=== PATIENT | female | born 1930 | race Caucasian/White ===

== ENCOUNTER 2021-07-27 13:58 | Inpatient (IN) | payer MEDICARE, BC ==
[~2021-07-27] VITALS: Ht 157.5 cm; Wt 55.3 kg
[~2021-07-27 13:58] MED LIST: BUMETANIDE1 MG PO; CLINDAMYCIN HC150 MG PO; DIGOXIN125 MCG PO; DILTIAZEM 24HR180 MG PO; XARELTO10 MG PO
[2021-07-27 14:24] LABS: BASOPHILS # (AUTO) 0.1 (0.0-0.1); BASOPHILS % 0.4 % (0.0-1.0); EOSINOPHILS % 0.3 % (0.0-6.0); HEMATOCRIT 38.4 % (34.2-44.1); HEMOGLOBIN 12.5 g/dL (12.0-16.0); LYMPHOCYTES # (AUTO) 0.8 (1.0-3.2); LYMPHOCYTES % 6.4 % (18.0-39.1); MEAN CORPUSCULAR HEMOGLOBIN 29.6 pg (28-32); MEAN CORPUSCULAR HGB CONC 32.6 g/dL (31-35); MEAN CORPUSCULAR VOLUME 90.8 fL (81-99); MONOCYTES # (AUTO) 0.9 (0.2-0.8); MONOCYTES % 7.1 % (4.4-11.3); NEUTROPHILS # (AUTO) 10.3 (2.1-6.9); NEUTROPHILS % 85.3 % (38.7-80.0); PLATELET COUNT 236 x10e3/uL (140-360); RED BLOOD COUNT 4.23 x10e6/uL (3.6-5.1); RED CELL DISTRIBUTION WIDTH 14.2 % (11.7-14.4)
[2021-07-27 14:29] LABS: INR 4.17
[2021-07-27 14:30] LABS: PARTIAL THROMBOPLASTIN TIME 72.4 seconds (23.8-35.5)
[2021-07-27 14:37] LABS: ALBUMIN 4.1 g/dL (3.5-5.0); ANION GAP 14.8 mmol/L (8-16); CALCIUM 9.4 mg/dL (8.4-10.2); CREATININE, SERUM 0.87 mg/dL (0.57-1.11); POTASSIUM 3.8 mmol/L (3.5-5.1)
[2021-07-27 14:44] LABS: CREATINE KINASE MB 8.1 ng/mL (0-5.0)
[2021-07-27] MEDS ORDERED: ASPIRIN 81 MG CHEW TAB PO ONE (18:00)
[2021-07-27 20:00] VITALS: BP 176/69
[2021-07-27 21:00] VITALS: BP 176/69
[2021-07-27 21:49] VITALS: BP 176/69
[2021-07-27] MEDS ORDERED: MELATONIN 3 MG TAB PO PRN (22:30)
[2021-07-27] MEDS ORDERED: HYDROCODONE/APAP 5MG-325MG TAB PO PRN (22:30)
[2021-07-27] MEDS: ENOXAPARIN SOD INJ 60 MG/0.6 ML SYR SC SCH (22:30)
[2021-07-27] MEDS ORDERED: ACETAMINOPHEN 325 MG TAB PO PRN (22:30)
[2021-07-27] MEDS ORDERED: ONDANSETRON HCL INJ 2MG/ML 2ML 2 MG/ML VIAL IV PRN (22:30)
[2021-07-27] MEDS ORDERED: HYDRALAZINE HCL 20 MG/ML VIAL IV PRN (22:45)
[2021-07-27] MEDS ORDERED: AMIODARONE HCL200 MG PO (22:51)
[2021-07-27] MEDS ORDERED: ALBUTEROL/IPRATROPIUM 3 ML NEB NEB PRN (23:45)
[2021-07-28] VITALS: BP 159/68
[2021-07-28] MEDS ORDERED: DIPHENHYDRAMINE HCL INJ 50 MG/ML VIAL IV PRN
[2021-07-28 01:25] LABS: CHOL/HDL RATIO 2.5 (3.0-3.6)
[2021-07-28 01:26] LABS: CREATINE KINASE MB 12.4 ng/mL (0-5.0)
[2021-07-28 04:00] VITALS: BP 140/61
[2021-07-28] MEDS ORDERED: SODIUM CHLORIDE 0.9% 250ML 250 ML ONE (05:39)
[2021-07-28] MEDS: Clindamycin INJ 300 MG/50 ML 50 ML IV SCH ×3 (06:30→21:54)
[2021-07-28 06:36] LABS: BASOPHILS % 0.3 % (0.0-1.0); EOSINOPHILS # (AUTO) 0.1 (0.0-0.4); EOSINOPHILS % 0.4 % (0.0-6.0); HEMATOCRIT 34.2 % (34.2-44.1); HEMOGLOBIN 11.2 g/dL (12.0-16.0); LYMPHOCYTES # (AUTO) 0.9 (1.0-3.2); LYMPHOCYTES % 7.8 % (18.0-39.1); MEAN CORPUSCULAR HEMOGLOBIN 29.8 pg (28-32); MEAN CORPUSCULAR HGB CONC 32.7 g/dL (31-35); MONOCYTES % 8.6 % (4.4-11.3); NEUTROPHILS # (AUTO) 9.4 (2.1-6.9); NEUTROPHILS % 82.5 % (38.7-80.0); PLATELET COUNT 200 x10e3/uL (140-360); RED BLOOD COUNT 3.76 x10e6/uL (3.6-5.1); RED CELL DISTRIBUTION WIDTH 14.1 % (11.7-14.4)
[2021-07-28 07:08] LABS: ALBUMIN 3.4 g/dL (3.5-5.0); ANION GAP 11.6 mmol/L (8-16); CALCIUM 8.6 mg/dL (8.4-10.2); CREATININE, SERUM 0.74 mg/dL (0.57-1.11); POTASSIUM 3.6 mmol/L (3.5-5.1)
[2021-07-28 08:37] VITALS: BP 140/68
[2021-07-28] MEDS ORDERED: RIVAROXABAN 15 MG TABLET PO SCH (09:00)
[2021-07-28] MEDS ORDERED: FUROSEMIDE INJ 10 MG/ML 4 ML VIAL IV SCH (09:00)
[2021-07-28] MEDS ORDERED: BUMETANIDE 1 MG TAB PO SCH (09:00)
[2021-07-28] MEDS: ASPIRIN 81 MG CHEW TAB PO SCH (09:32)
[2021-07-28] MEDS: DILTIAZEM HCL ER 120 MG CAP PO SCH (09:33)
[2021-07-28] MEDS: DIGOXIN 0.125 MG TAB PO SCH (09:34)
[2021-07-28] MEDS: METHYLPREDNISOLONE SOD SUCC 125 MG/2ML VIAL IV SCH ×2 (09:45→21:54)
[2021-07-28] MEDS: ENOXAPARIN SOD INJ 60 MG/0.6 ML SYR SC SCH ×2 (09:47→21:54)
[2021-07-28] MEDS: ALBUTEROL/IPRATROPIUM 3 ML NEB NEB SCH ×3 (10:15→20:20)
[2021-07-28 11:37] LABS: CREATINE KINASE MB 12.1 ng/mL (0-5.0)
[2021-07-28 12:14] VITALS: BP 150/71
[2021-07-28] MEDS: BENZONATATE 100 MG CAP PO PRN (14:52)
[2021-07-28 15:47] VITALS: BP 117/59
[2021-07-28 20:00] VITALS: BP 128/62
[2021-07-28] MEDS: SODIUM CHLORIDE FLUSH 10 ML SYR INJ PRN (21:30)
[2021-07-28] MEDS: FUROSEMIDE INJ 10 MG/ML 4 ML VIAL IV SCH (21:44)
[2021-07-29] VITALS (7 sets, daily range): BP systolic 102–130; BP diastolic 63–71
[2021-07-29] MEDS: ALBUTEROL/IPRATROPIUM 3 ML NEB NEB SCH ×6 (01:00→23:36)
[2021-07-29 05:54] LABS: BASOPHILS % 0.1 % (0.0-1.0); HEMATOCRIT 31.9 % (34.2-44.1); HEMOGLOBIN 10.6 g/dL (12.0-16.0); LYMPHOCYTES # (AUTO) 0.6 (1.0-3.2); LYMPHOCYTES % 4.5 % (18.0-39.1); MEAN CORPUSCULAR HEMOGLOBIN 29.5 pg (28-32); MEAN CORPUSCULAR HGB CONC 33.2 g/dL (31-35); MEAN CORPUSCULAR VOLUME 88.9 fL (81-99); MONOCYTES # (AUTO) 0.4 (0.2-0.8); MONOCYTES % 2.9 % (4.4-11.3); NEUTROPHILS # (AUTO) 11.6 (2.1-6.9); NEUTROPHILS % 92.1 % (38.7-80.0); PLATELET COUNT 197 x10e3/uL (140-360); RED BLOOD COUNT 3.59 x10e6/uL (3.6-5.1); RED CELL DISTRIBUTION WIDTH 13.8 % (11.7-14.4)
[2021-07-29] MEDS: Clindamycin INJ 300 MG/50 ML 50 ML IV SCH ×3 (06:20→22:00)
[2021-07-29 06:26] LABS: ALBUMIN 3.2 g/dL (3.5-5.0); ALBUMIN/GLOBULIN RATIO 0.9 (0.8-2.0); ANION GAP 12.1 mmol/L (8-16); CALCIUM 8.3 mg/dL (8.4-10.2); CREATININE, SERUM 0.93 mg/dL (0.57-1.11); POTASSIUM 3.1 mmol/L (3.5-5.1)
[2021-07-29] MEDS: BENZONATATE 100 MG CAP PO PRN (08:41)
[2021-07-29] MEDS: DIGOXIN 0.125 MG TAB PO SCH (08:41)
[2021-07-29] MEDS: ASPIRIN 81 MG CHEW TAB PO SCH (08:42)
[2021-07-29] MEDS: DILTIAZEM HCL ER 120 MG CAP PO SCH (08:42)
[2021-07-29] MEDS: METHYLPREDNISOLONE SOD SUCC 125 MG/2ML VIAL IV SCH ×2 (08:43→21:00)
[2021-07-29] MEDS: FUROSEMIDE INJ 10 MG/ML 4 ML VIAL IV SCH (08:43)
[2021-07-29 08:44] LABS: LYMPHOCYTES % (MANUAL) 4 % (19-48); MONOCYTES % (MANUAL) 1 % (3.4-9.0); NEUTROPHILS % (MANUAL) 95 % (40-74); PLATELET ESTIMATE ADEQUATE; PLATELET MORPHOLOGY COMMENT NORMAL
[2021-07-29 08:45] LABS: RBC MORPHOLOGY COMMENT NORMAL
[2021-07-29] MEDS: ENOXAPARIN SOD INJ 60 MG/0.6 ML SYR SC SCH ×2 (10:21→22:29)
[2021-07-29] MEDS: GUAIFENESIN 200 MG/10 ML UDC PO PRN ×3 (15:00→22:26)
[2021-07-30] VITALS (8 sets, daily range): BP systolic 119–161; BP diastolic 72–85
[2021-07-30] MEDS: BENZONATATE 100 MG CAP PO PRN ×2 (02:33→21:30)
[2021-07-30 05:16] LABS: BASOPHILS % 0.1 % (0.0-1.0); HEMATOCRIT 32.6 % (34.2-44.1); HEMOGLOBIN 11.2 g/dL (12.0-16.0); LYMPHOCYTES # (AUTO) 0.6 (1.0-3.2); LYMPHOCYTES % 2.3 % (18.0-39.1); MEAN CORPUSCULAR HGB CONC 34.4 g/dL (31-35); MEAN CORPUSCULAR VOLUME 87.4 fL (81-99); MONOCYTES % 3.8 % (4.4-11.3); NEUTROPHILS # (AUTO) 25.2 (2.1-6.9); NEUTROPHILS % 93.2 % (38.7-80.0); PLATELET COUNT 260 x10e3/uL (140-360); RED BLOOD COUNT 3.73 x10e6/uL (3.6-5.1); RED CELL DISTRIBUTION WIDTH 13.9 % (11.7-14.4)
[2021-07-30 05:57] LABS: ALBUMIN 3.5 g/dL (3.5-5.0); ANION GAP 15.3 mmol/L (8-16); CALCIUM 8.4 mg/dL (8.4-10.2); CREATININE, SERUM 0.98 mg/dL (0.57-1.11); POTASSIUM 3.3 mmol/L (3.5-5.1)
[2021-07-30] MEDS: Clindamycin INJ 300 MG/50 ML 50 ML IV SCH (06:00)
[2021-07-30] MEDS: ALBUTEROL/IPRATROPIUM 3 ML NEB NEB SCH ×3 (06:31→20:25)
[2021-07-30] MEDS: GUAIFENESIN 200 MG/10 ML UDC PO PRN (06:59)
[2021-07-30 08:45] LABS: LYMPHOCYTES % (MANUAL) 5 % (19-48); MONOCYTES % (MANUAL) 2 % (3.4-9.0); NEUTROPHILS % (MANUAL) 93 % (40-74); PLATELET ESTIMATE ADEQUATE; PLATELET MORPHOLOGY COMMENT NORMAL; RBC MORPHOLOGY COMMENT NORMAL
[2021-07-30] MEDS: METHYLPREDNISOLONE SOD SUCC 125 MG/2ML VIAL IV SCH ×2 (08:56→21:29)
[2021-07-30] MEDS: LEVOFLOXACIN 500MG/D5W 100ML 100 ML IV SCH (08:56)
[2021-07-30] MEDS: ASPIRIN 81 MG CHEW TAB PO SCH (08:58)
[2021-07-30] MEDS: DIGOXIN 0.125 MG TAB PO SCH (08:59)
[2021-07-30] MEDS: DILTIAZEM HCL ER 120 MG CAP PO SCH (08:59)
[2021-07-30] MEDS ORDERED: FUROSEMIDE INJ 10 MG/ML 4 ML VIAL IV SCH (09:00)
[2021-07-30] MEDS ORDERED: POTASSIUM CHLORIDE 20 MEQ TAB CR PO ONE ×2 (09:00→15:50)
[2021-07-30] MEDS: ENOXAPARIN SOD INJ 60 MG/0.6 ML SYR SC SCH ×2 (10:19→22:21)
[2021-07-30] MEDS: POLYETHYLENE GLYCOL 3350 17 GM PACK PO SCH (16:15)
[2021-07-30] MEDS: PANTOPRAZOLE SOD 40 MG TABEC PO SCH (16:15)
[2021-07-30 16:52] LABS: CLARITY,URINE CLEAR (CLEAR); COLOR,URINE YELLOW (YELLOW); KETONES,URINE NEGATIVE (NEGATIVE); LEUKOCYTE ESTERASE ,URINE NEGATIVE (NEGATIVE); NITRITE,URINE NEGATIVE (NEGATIVE); PROTEIN,URINE DIPSTICK 1+ (NEGATIVE); URINE UROBILINOGEN 0.2 mg/dL (0.2 - 1)
[2021-07-30 16:53] LABS: BACTERIA,URINE FEW /HPF; RBC,URINE 0-5 /HPF (0-5); WBC,URINE (MAN) 0-5 /HPF (0-5)
[2021-07-30] MEDS ORDERED: IOPAMIDOL 370 MG/ML 200 ML INFUS..BTL INJ ONE (17:36)
[2021-07-30] MEDS ORDERED: SODIUM CHLORIDE 0.9% 50ML 50 ML ONE (17:36)
[2021-07-30] MEDS: DOCUSATE SODIUM 100 MG CAP PO SCH (21:00)
[2021-07-31] VITALS (8 sets, daily range): BP systolic 126–165; BP diastolic 55–95
[2021-07-31 05:41] LABS: BASOPHILS % 0.1 % (0.0-1.0); HEMATOCRIT 32.9 % (34.2-44.1); HEMOGLOBIN 11.1 g/dL (12.0-16.0); LYMPHOCYTES # (AUTO) 0.6 (1.0-3.2); LYMPHOCYTES % 2.7 % (18.0-39.1); MEAN CORPUSCULAR HEMOGLOBIN 29.4 pg (28-32); MEAN CORPUSCULAR HGB CONC 33.7 g/dL (31-35); MEAN CORPUSCULAR VOLUME 87.3 fL (81-99); MONOCYTES # (AUTO) 1.3 (0.2-0.8); MONOCYTES % 6.3 % (4.4-11.3); NEUTROPHILS # (AUTO) 18.8 (2.1-6.9); NEUTROPHILS % 89.7 % (38.7-80.0); PLATELET COUNT 288 x10e3/uL (140-360); RED BLOOD COUNT 3.77 x10e6/uL (3.6-5.1); RED CELL DISTRIBUTION WIDTH 13.8 % (11.7-14.4)
[2021-07-31 06:10] LABS: CALCIUM 8.6 mg/dL (8.4-10.2); CREATININE, SERUM 0.84 mg/dL (0.57-1.11); MAGNESIUM 2.1 MG/DL (1.3-2.1)
[2021-07-31 06:28] LABS: PHOSPHORUS 2.3 MG/DL (2.3-4.7)
[2021-07-31] MEDS: ALBUTEROL/IPRATROPIUM 3 ML NEB NEB SCH ×5 (06:35→23:30)
[2021-07-31] MEDS: ASPIRIN 81 MG CHEW TAB PO SCH (08:03)
[2021-07-31] MEDS: PANTOPRAZOLE SOD 40 MG TABEC PO SCH (08:03)
[2021-07-31] MEDS: METHYLPREDNISOLONE SOD SUCC 125 MG/2ML VIAL IV SCH ×2 (08:03→21:16)
[2021-07-31] MEDS: LEVOFLOXACIN 500MG/D5W 100ML 100 ML IV SCH (08:03)
[2021-07-31] MEDS: POLYETHYLENE GLYCOL 3350 17 GM PACK PO SCH ×2 (08:04→16:56)
[2021-07-31] MEDS: DIGOXIN 0.125 MG TAB PO SCH (08:04)
[2021-07-31] MEDS: DOCUSATE SODIUM 100 MG CAP PO SCH ×3 (08:04→21:16)
[2021-07-31] MEDS: DILTIAZEM HCL ER 120 MG CAP PO SCH (08:04)
[2021-07-31] MEDS ORDERED: SODIUM CHLORIDE 0.9% 500ML 500 ML IV ONE (08:30)
[2021-07-31] MEDS ORDERED: MAGNESIUM HYDROXIDE 30 ML UDC PO ONE (08:30)
[2021-07-31] MEDS ORDERED: BISACODYL 10 MG SUPP PR ONE (09:00)
[2021-07-31 09:42] LABS: BAND NEUTROPHILS % (MANUAL) 1 %; LYMPHOCYTES % (MANUAL) 2 % (19-48); MONOCYTES % (MANUAL) 5 % (3.4-9.0); NEUTROPHILS % (MANUAL) 92 % (40-74); PLATELET ESTIMATE ADEQUATE; PLATELET MORPHOLOGY COMMENT NORMAL; RBC MORPHOLOGY COMMENT NORMAL
[2021-07-31] MEDS: ENOXAPARIN SOD INJ 60 MG/0.6 ML SYR SC SCH ×2 (10:20→22:20)
[2021-07-31] MEDS: SODIUM CHLORIDE FLUSH 10 ML SYR INJ PRN (21:27)
[2021-07-31] MEDS: ONDANSETRON HCL 4 MG ORAL DISINTEGRATING TAB PO PRN (21:27)
[2021-08-01] VITALS (10 sets, daily range): BP systolic 73–125; BP diastolic 48–81
[2021-08-01] MEDS: ALBUTEROL/IPRATROPIUM 3 ML NEB NEB SCH ×4 (03:30→19:40)
[2021-08-01 05:47] LABS: ALBUMIN/GLOBULIN RATIO 1.3 (0.8-2.0); ANION GAP 13.6 mmol/L (8-16); CALCIUM 7.9 mg/dL (8.4-10.2); CREATININE, SERUM 1.35 mg/dL (0.57-1.11); POTASSIUM 4.6 mmol/L (3.5-5.1)
[2021-08-01 06:19] LABS: BASOPHILS # (AUTO) 0.1 (0.0-0.1); BASOPHILS % 0.2 % (0.0-1.0); HEMATOCRIT 23.9 % (34.2-44.1); LYMPHOCYTES # (AUTO) 1.3 (1.0-3.2); LYMPHOCYTES % 5.3 % (18.0-39.1); MEAN CORPUSCULAR HEMOGLOBIN 29.9 pg (28-32); MEAN CORPUSCULAR HGB CONC 33.9 g/dL (31-35); MEAN CORPUSCULAR VOLUME 88.2 fL (81-99); MONOCYTES # (AUTO) 1.9 (0.2-0.8); MONOCYTES % 7.6 % (4.4-11.3); NEUTROPHILS # (AUTO) 20.8 (2.1-6.9); PLATELET COUNT 249 x10e3/uL (140-360); RED BLOOD COUNT 2.71 x10e6/uL (3.6-5.1); RED CELL DISTRIBUTION WIDTH 13.8 % (11.7-14.4)
[2021-08-01 06:26] LABS: HEMOGLOBIN 8.1 g/dL (12.0-16.0)
[2021-08-01] MEDS ORDERED: SODIUM CHLORIDE 0.9% 500ML 500 ML IV ONE (06:45)
[2021-08-01] MEDS: ASPIRIN 81 MG CHEW TAB PO SCH (09:41)
[2021-08-01] MEDS: LEVOFLOXACIN 500MG/D5W 100ML 100 ML IV SCH (09:41)
[2021-08-01] MEDS: PANTOPRAZOLE SOD 40 MG TABEC PO SCH (09:41)
[2021-08-01] MEDS: DOCUSATE SODIUM 100 MG CAP PO SCH ×3 (09:42→21:00)
[2021-08-01] MEDS: DIGOXIN 0.125 MG TAB PO SCH (09:42)
[2021-08-01] MEDS: POLYETHYLENE GLYCOL 3350 17 GM PACK PO SCH ×2 (09:42→16:58)
[2021-08-01] MEDS: DILTIAZEM HCL ER 120 MG CAP PO SCH (09:42)
[2021-08-01] MEDS: METHYLPREDNISOLONE SOD SUCC 125 MG/2ML VIAL IV SCH ×2 (09:50→22:42)
[2021-08-01] MEDS: ENOXAPARIN SOD INJ 60 MG/0.6 ML SYR SC SCH ×2 (10:30→22:56)
[2021-08-01 11:40] LABS: BAND NEUTROPHILS % (MANUAL) 1 %; LYMPHOCYTES % (MANUAL) 7 % (19-48); MONOCYTES % (MANUAL) 7 % (3.4-9.0); NEUTROPHILS % (MANUAL) 85 % (40-74)
[2021-08-01 11:41] LABS: PLATELET ESTIMATE ADEQUATE; PLATELET MORPHOLOGY COMMENT NORMAL; RBC MORPHOLOGY COMMENT NORMAL
[2021-08-01 16:20] LABS: ANION GAP 23.5 mmol/L (8-16); CREATININE, SERUM 2.2 mg/dL (0.57-1.11)
[2021-08-01 16:22] LABS: POTASSIUM 5.5 mmol/L (3.5-5.1)
[2021-08-01] MEDS: ONDANSETRON HCL 4 MG ORAL DISINTEGRATING TAB PO PRN (17:56)
[2021-08-01] MEDS ORDERED: CALCIUM GLUC 1 G/50 ML NACL 50 ML IV ONE (18:30)
[2021-08-01] MEDS ORDERED: INSULIN REGULAR, HUMAN 100 UNIT/1 ML IV STA (20:09)
[2021-08-01] MEDS ORDERED: DEXTROSE 50% SYRINGE 50 ML IV STA (20:09)
[2021-08-01] MEDS ORDERED: SOD POLYSTYRENE SULFONATE SUSP 15 GM/60 ML BTL PO STA (20:11)
[2021-08-01] MEDS ORDERED: SODIUM CHLORIDE 0.9% 1000ML 1,000 ML IV SCH (21:45)
[2021-08-01] MEDS ORDERED: MEROPENEM 500 MG in SODIUM CHLORIDE 0.9% 50ML 50 ML IV SCH (21:45)
[2021-08-01] MEDS ORDERED: SODIUM BICARBONATE 8.4% INJ 50 ML SYR IV STA (21:56)
[2021-08-01] MEDS ORDERED: VASOPRESSIN 60 UNIT in DEXTROSE 5% 50ML 57 ML IV PRN (22:00)
[2021-08-01] MEDS ORDERED: SODIUM CHLORIDE 0.9% 1000ML 1,000 ML ONE (22:01)
[2021-08-01] MEDS ORDERED: Vancomycin IV 1 GM in SODIUM CHLORIDE 0.9% 250ML 250 ML IV ONE (22:05)
[2021-08-01] MEDS ORDERED: SODIUM BICARBONATE 8.4% SYRING 0 ML ONE (22:32)
[2021-08-02] VITALS (7 sets, daily range): BP systolic 68–88; BP diastolic 39–59
[2021-08-02] MEDS: ALBUTEROL/IPRATROPIUM 3 ML NEB NEB SCH ×2 (00:15→04:45)
[2021-08-02] MEDS ORDERED: MAGNESIUM HYDROXIDE 30 ML UDC PO ONE ×2 (04:30→05:30)
[2021-08-02 06:24] LABS: BASOPHILS # (AUTO) 0.1 (0.0-0.1); BASOPHILS % 0.2 % (0.0-1.0); LYMPHOCYTES # (AUTO) 1.1 (1.0-3.2); MEAN CORPUSCULAR HEMOGLOBIN 29.9 pg (28-32); MEAN CORPUSCULAR HGB CONC 32.1 g/dL (31-35); MEAN CORPUSCULAR VOLUME 93.2 fL (81-99); MONOCYTES # (AUTO) 5.2 (0.2-0.8); MONOCYTES % 9.8 % (4.4-11.3); NEUTROPHILS # (AUTO) 41.4 (2.1-6.9); NEUTROPHILS % 78.3 % (38.7-80.0); PLATELET COUNT 215 x10e3/uL (140-360); RED BLOOD COUNT 1.77 x10e6/uL (3.6-5.1); RED CELL DISTRIBUTION WIDTH 14.2 % (11.7-14.4)
[2021-08-02 06:32] LABS: HEMATOCRIT 16.5 % (34.2-44.1)
[2021-08-02 06:33] LABS: HEMOGLOBIN 5.3 g/dL (12.0-16.0)
[2021-08-02 06:36] LABS: ALBUMIN 2.3 g/dL (3.5-5.0); ALBUMIN/GLOBULIN RATIO 1.1 (0.8-2.0); ANION GAP 23.2 mmol/L (8-16); CALCIUM 7.4 mg/dL (8.4-10.2); CREATININE, SERUM 2.84 mg/dL (0.57-1.11)
[2021-08-02 06:40] LABS: POTASSIUM 6.2 mmol/L (3.5-5.1)
[2021-08-02] MEDS ORDERED: SODIUM CHLORIDE 0.9% 250ML 250 ML IV ONE (06:45)
[2021-08-02] MEDS ORDERED: ALBUMIN 25% 25GM 100ML 0.25 GM/ML BTL IV STA (06:45)
[2021-08-02] MEDS ORDERED: INSULIN REGULAR, HUMAN 100 UNIT/1 ML IV ONE (06:45)
[2021-08-02] MEDS ORDERED: NOREPINEPHRINE 8 MG/D5W 250 ML 250 ML IV SCH (06:45)
[2021-08-02] MEDS ORDERED: SODIUM BICARBONATE 8.4% INJ 50 ML SYR IV STA (06:45)
[2021-08-02] MEDS ORDERED: DEXTROSE 50% SYRINGE 50 ML IV STA (06:45)
[2021-08-02] MEDS ORDERED: SODIUM BICARBONATE 8.4% SYRING 50 ML ONE (07:01)
[2021-08-02] MEDS ORDERED: MIDAZOLAM HCL 5MG/ML 10ML VIAL 100 ML IV PRN (07:15)
[2021-08-02] MEDS ORDERED: EPINEPHRINE HCL 1:1000 1ML 4 MG in DEXTROSE 5% 250ML 250 ML IV SCH (07:15)
[2021-08-02] MEDS ORDERED: FENTANYL 2000MCG/NS 250 250 ML IV SCH (07:15)
[2021-08-02 08:32] LABS: LYMPHOCYTES % (MANUAL) 4 % (19-48); METAMYELOCYTES % (MANUAL) 1 % (0-0); MONOCYTES % (MANUAL) 9 % (3.4-9.0); MYELOCYTES % (MANUAL) 2 % (0-0); NEUTROPHILS % (MANUAL) 84 % (40-74)
[2021-08-02 08:33] LABS: PLATELET ESTIMATE ADEQUATE; PLATELET MORPHOLOGY COMMENT NORMAL
[2021-08-02 08:34] LABS: HYPOCHROMASIA SLIGHT; RBC MORPHOLOGY COMMENT NORMAL
[2021-08-02] MEDS ORDERED: EPINEPHRINE HCL SYRINGE ONE (13:32)
== END 2021-08-02 11:47 | disposition expired | DRG 208 ==
LOC: ER 14:03 → ERHOLD 18:06 → MED/SURG 20:20 → ICU 08-01 20:53
PROVIDERS: ADMIT Internal Medicine; ATTEND Internal Medicine
PROC: 02HV33Z Insertion of Infusion Device into Superior Vena Cava, Percutaneous Approach (ICD-10-PCS; 2021-07-27)
PROC: 02HV33Z Insertion of Infusion Device into Superior Vena Cava, Percutaneous Approach (ICD-10-PCS; 2021-08-01)
PROC: 3E043XZ Introduction of Vasopressor into Central Vein, Percutaneous Approach (ICD-10-PCS; 2021-08-01)
PROC: 5A12012 Performance of Cardiac Output, Single, Manual (ICD-10-PCS; principal; 2021-08-02)
PROC: 5A1935Z Respiratory Ventilation, Less than 24 Consecutive Hours (ICD-10-PCS; 2021-08-02)
PROC: 0BH17EZ Insertion of Endotracheal Airway into Trachea, Via Natural or Artificial Opening (ICD-10-PCS; 2021-08-02)
DX: J44.1 Chronic obstructive pulmonary disease with (acute) exacerbation (principal); I50.33 Acute on chronic diastolic (congestive) heart failure; J18.9 Pneumonia, unspecified organism; J96.00 Acute respiratory failure, unspecified whether with hypoxia or hypercapnia; J91.8 Pleural effusion in other conditions classified elsewhere; E87.1 Hypo-osmolality and hyponatremia; K92.2 Gastrointestinal hemorrhage, unspecified; I46.9 Cardiac arrest, cause unspecified; I11.0 Hypertensive heart disease with heart failure; J44.0 Chronic obstructive pulmonary disease with (acute) lower respiratory infection; J22 Unspecified acute lower respiratory infection; Z20.822 Contact with and (suspected) exposure to COVID-19; Z79.01 Long term (current) use of anticoagulants; E78.5 Hyperlipidemia, unspecified; R60.0 Localized edema; I48.0 Paroxysmal atrial fibrillation; R62.7 Adult failure to thrive; Z68.22 Body mass index [BMI] 22.0-22.9, adult; K59.00 Constipation, unspecified; E86.0 Dehydration; I87.2 Venous insufficiency (chronic) (peripheral); E87.6 Hypokalemia; I35.8 Other nonrheumatic aortic valve disorders; I44.0 Atrioventricular block, first degree; Z88.0 Allergy status to penicillin; M16.11 Unilateral primary osteoarthritis, right hip; E87.5 Hyperkalemia; Z86.718 Personal history of other venous thrombosis and embolism; Z85.828 Personal history of other malignant neoplasm of skin; Z96.641 Presence of right artificial hip joint
CPT/HCPCS: 31500; 36415; 36569; 36600; 71045; 71260; 74018; 80048; 80053; 80061; 80162; 81001; 82550; 82553; 83036; 83605; 83735; 83880; 84100; 84484; 85025; 85610; 85730; 87040; 92950; 93005; 93306; 93970; 94640; 94799; 96360; 97139; 99284; J0171; J1650; J1817; J1940; J1956; J2185; J2930; J3370; J7030; J7040; J7050; J7070; J7799; P9047; Q0162; Q9967; U0002